=== PATIENT | male | born 1995 | race Two or more races ===

== ENCOUNTER 2019-07-21 03:43 | Emergency (ER) | payer OTHER ==
[~2019-07-21] VITALS: Ht 177.8 cm; Wt 90.9 kg
[2019-07-21] MEDS ORDERED: SULFAMETHOX/TRIMETH DS 800-160 MG/TABLET PO ONE (05:15)
[2019-07-21] MEDS ORDERED: LIDOCAINE 1% 10 ML VIAL INJ ONE (05:15)
[2019-07-21] MEDS ORDERED: BACITRACIN 0.9 GM PACKET OINTMENT TP ONE (05:42)
[2019-07-21 05:50] VITALS: BP 138/86
[2019-07-21] MEDS ORDERED: ACETAMINOPHEN 500 MG TABLET PO ONE (06:00)
[2019-07-21] MEDS ORDERED: IBUPROFEN 600 MG TABLET PO ONE (06:00)
== END 2019-07-21 06:05 | disposition home or self-care (01) ==
LOC: EMS 03:43
DX: L03.011 Cellulitis of right finger (principal); J45.909 Unspecified asthma, uncomplicated; F12.90 Cannabis use, unspecified, uncomplicated
CPT/HCPCS: 26010; 73130; 99283; J3490

== ENCOUNTER 2021-04-11 01:47 | Emergency (ER) | payer OTHER ==
[~2021-04-11] VITALS: Ht 177.8 cm; Wt 100.0 kg
[2021-04-11] MEDS ORDERED: KETOROLAC TROMETHAMINE 30 MG/ML VIAL IVP ONE (02:15)
[2021-04-11] MEDS ORDERED: 0.9% SODIUM CHLORIDE 10 ML SYRINGE IVP PRN (02:15)
[2021-04-11] MEDS ORDERED: SODIUM CHLORIDE 0.9% 3,000 ML IV ONE (02:15)
[2021-04-11 02:30] LABS: BASOPHILS % (AUTO) 0.4 % (0.0-2.0); HEMATOCRIT 43.1 % (41-53); HEMOGLOBIN 14.5 g/dL (13.5-17.5); LYMPHOCYTES # (AUTO) 1.3 K/uL (1.0-4.8); MEAN CORPUSCULAR HEMOGLOBIN 29.4 pg (26.0-34.0); MEAN CORPUSCULAR HGB CONC 33.6 G/dL (31.0-37.0); MEAN CORPUSCULAR VOLUME 88 fL (80-100); MONOCYTES # (AUTO) 0.9 K/uL (0.1-1.0); MONOCYTES % (AUTO) 7.2 % (2.0-9.0); NEUTROPHILS # (AUTO) 9.6 K/uL (1.8-7.7); NEUTROPHILS % (AUTO) 80.4 % (40.0-70.0); PLATELET COUNT (AUTO) 301 K/uL (150-450); RED BLOOD CELL COUNT(AUTO) 4.93 MIL/uL (4.50-5.90); RED CELL DISTRIBUTION WIDTH 13.2 % (11.5-14.5)
[2021-04-11 02:39] LABS: ANION GAP 8 mmol/L (8-16); CALCIUM, TOTAL 8.8 mg/dL (8.8-10.5); CARBON DIOXIDE 29 mmol/L (22-29); CHLORIDE 103 mmol/L (98-107); CREATININE 1.09 mg/dL (0.60-1.30); GLOMERULAR FILTR. RATE CALC > 60 mL/min (>60); GLUCOSE,RANDOM 112 mg/dL (70-110); POTASSIUM 3.5 mmol/L (3.5-5.1); SODIUM SERUM 140 mmol/L (136-145); UREA NITROGEN, BLOOD 15 mg/dL (7-18)
[2021-04-11 02:41] LABS: PROTHROMBIN TIME 10.6 SEC (9.4-11.6)
[2021-04-11 02:45] LABS: ALANINE AMINOTRANSFERASE 32 U/L (12-78); ALKALINE PHOSPHATASE 89 U/L (46-116); ASPARTATE AMINOTRANSFERASE 17 U/L (15-37); BILIRUBIN,TOTAL 0.4 mg/dL (0.1-1.0); TOTAL PROTEIN, SERUM 7.2 g/dL (6.4-8.2); URIC ACID 5.3 mg/dL (2.6-7.2)
[2021-04-11 02:47] LABS: GLUCOMETER DEV NAME(LOC) ERT.5; GLUCOSE,POINT OF CARE 119 MG/DL (70-110)
[2021-04-11 02:48] LABS: LACTIC ACID < 0.3 mmol/L (0.4-2.0)
[2021-04-11 03:23] LABS: ERYTHROCYTE SEDIMENTATION RATE 7 MM/HR (0-15)
[2021-04-11 03:24] LABS: C-REACTIVE PROTEIN QUANT 1.83 mg/dL (0.00-0.30)
[2021-04-11 04:00] VITALS: BP 135/76
[2021-04-11] MEDS ORDERED: CefTRIAXone 1 GM/DEXTROSE 50 ML IV ONE (04:00)
== END 2021-04-11 05:54 | disposition home or self-care (01) ==
LOC: EMS 01:48
DX: L03.116 Cellulitis of left lower limb (principal); R60.0 Localized edema; J45.909 Unspecified asthma, uncomplicated; F12.90 Cannabis use, unspecified, uncomplicated
CPT/HCPCS: 36415; 73610; 73630; 80053; 82962; 83605; 84145; 84550; 85025; 85610; 85651; 86140; 87040; 93005; 93971; 96361; 96365; 96375; 99285; G0480; J0696; J1885; J7030; 82948

== ENCOUNTER 2023-12-26 01:49 | Emergency (ER) | payer OTHER ==
[~2023-12-26] VITALS: Ht 177.8 cm; Wt 136.8 kg
[2023-12-26 01:52] VITALS: BP 101/45; PULSE 137; RESP 20; TEMP 98
== END 2023-12-26 03:08 | disposition home or self-care (01) ==
LOC: EMS 01:49
DX: Z04.71 Encounter for examination and observation following alleged adult physical abuse (principal); J45.909 Unspecified asthma, uncomplicated; F17.210 Nicotine dependence, cigarettes, uncomplicated; F12.90 Cannabis use, unspecified, uncomplicated; F15.10 Other stimulant abuse, uncomplicated
CPT/HCPCS: 99282; Z7502